=== PATIENT | male | born 1980 | race American Indian/Alaskan Native ===

== ENCOUNTER 2019-08-22 21:48 | Emergency (ER) | payer SELFPAY ==
--- NOTE | 2019-08-23 01:29 | Emergency Department Report ---
<JAHAIRA CUADRA - Last Filed: 08/23/19 04:38> ED Fall HPI - General Chief Complaint: Fall Stated Complaint: RIGHT LEG AND NECK PAIN,ETOH Time Seen by Provider: 08/23/19 00:36 Source: patient, EMS Mode of arrival: Ambulatory Limitations: Altered Mental Status (secondary to intoxication) - History of Present Illness Initial Comments: Difficult to perform full HPI secondary to patient's intoxication, patient is a poor historian Patient is a 39-year-old male who presents emergency room with complaints of a fall that occurred tonight. He states he was "jumping into something and fell in the mud". I asked patient what he was jumping into and he begins to laugh. He states he hit his head. He states he has back pain. Upon questioning patient if he lost consciousness he laughs. No past medical history per patient no known allergies per patient. I asked pt if he drank alcohol tonight and he states yes that he drank four locos, I asked pt how much he had to drink and he stated "alot" - Related Data Home Medications Medication Instructions Recorded Confirmed Last Taken No Known Home Medications [No 08/23/19 08/23/19 Unknown Reported Home Medications] Allergies Allergy/AdvReac Type Severity Reaction Status Date / Time No Known Allergies Allergy Verified 08/23/19 04:29 ED Review of Systems Comment: Unobtainable due to pts medical conditions ED Past Medical Hx - Past Medical History Previous Medical History?: No - Surgical History Past Surgical History?: No - Social History Smoking Status: Current Every Day Smoker Substance Use Type: Alcohol - Medications Home Medications: Home Medications Medication Instructions Recorded Confirmed Last Taken Type No Known Home Medications [No 08/23/19 08/23/19 Unknown History Reported Home Medications] ED Physical Exam - General Limitations: No Limitations General appearance: appears intoxicated - Head Head exam: Present: atraumatic, normocephalic - Eye Eye exam: Present: PERRL, EOMI, conjunctival injection (bilaterally) - ENT ENT exam: Present: mucous membranes dry - Neck Neck exam: Present: normal inspection, full ROM - Respiratory Respiratory exam: Present: normal lung sounds bilaterally. Absent: respiratory distress, wheezes, rales, rhonchi, stridor, chest wall tenderness, accessory muscle use, decreased breath sounds, prolonged expiratory - Cardiovascular Cardiovascular Exam: Present: regular rate, normal rhythm, normal heart sounds. Absent: systolic murmur, diastolic murmur, rubs, gallop - Extremities Exam Extremities exam: Present: other (spontaneously moving all extremities and ambulating without difficulty) - Back Exam Back exam: Present: normal inspection, full ROM, other (upon palpation of the midline spine he states that everywhere hurts but then begins to laugh, there are no step offs, no obvious deformities) - Neurological Exam Neurological exam: Present: alert, normal gait, other (oriented to name and ) - Expanded Neurological Exam Expanded Best Eye Response ([place]): (4) open spontaneously Best Motor Response ([place]): (6) obeys commands Best Verbal Response ([place]): (4) confused conversation [place] Total: 14 - Skin Skin exam: Present: warm, dry, intact ED Medical Decision Making - Lab Data Result diagrams: 08/23/19 01:07 08/23/19 01:07 ED Disposition Clinical Impression: Alcohol intoxication, Fall, Injury of back due to fall Disposition: DC-01 TO HOME OR SELFCARE Condition: Stable Instructions: Alcohol Intoxication (ED), Abuse of Alcohol (ED) Additional Instructions: Please follow-up with a primary care physician in the next few days. Please avoid any further alcohol abuse. Return to the emergency department with any worsening of your symptoms or any acute distress. Referrals: [facility] [Provider Group] - 2-3 Days <RAFAEL MENCHACA - Last Filed: 08/23/19 06:26> ED Medical Decision Making - Lab Data Result diagrams: 08/23/19 01:07 08/23/19 01:07 - Radiology Data Radiology results: report reviewed CT head/brain wo con INDICATION / CLINICAL INFORMATION: Pt intoxicated, post- fall, now with headache, Positive L.O.C.. TECHNIQUE: Axial CT imaging of the brain was obtained without contrast. Coronal and sagittal reformatted imaging obtained and reviewed. All CT scans at this location are performed using CT dose reduction for ALARA by means of automated exposure control. COMPARISON: None available. FINDINGS: No intracranial hemorrhage, mass, or midline shift. No extra-axial fluid collection or suggestion of acute territorial infarction. Ventricular system and basilar cisterns are unremarkable. Visualized paranasal sinuses and mastoid air cells are well aerated and clear. No visible calvarial fracture. IMPRESSION: 1. Negative noncontrasted head CT scan. CT cervical spine wo con INDICATION / CLINICAL INFORMATION: Pt intoxicated, post-fall, now with headache, Positive L.O.C.. TECHNIQUE: Axial CT imaging of the cervical spine was obtained without contrast. Coronal and sagittal reformatted imaging obtained and reviewed. All CT scans at this location are performed using CT dose reduction for ALARA by means of automated exposure control. COMPARISON: None available. FINDINGS: No cervical spine fracture or malalignment is noted. Vertebral body heights and disc spaces are well- preserved. No significant degenerative change. Paravertebral soft tissues are unremarkable. Visualized lung apices are clear. IMPRESSION: 1. No evidence for fracture or malalignment. CT abdomen pelvis w con, CT chest w con INDICATION / CLINICAL INFORMATION: Pt intoxicated, post-fall, now with headache, back pain. Trauma Omnipaque 300 / 100ml's was used for this exam.. TECHNIQUE: Axial CT imaging of chest, abdomen and pelvis was obtained with IV contrast. Coronal and sagittal reformatted imaging obtained and reviewed. All CT scans at this location are performed using CT dose reduction for ALARA by means of automated exposure control. COMPARISON: None available. FINDINGS: CT chest with contrast is unremarkable. No mediastinal mass. Thoracic aorta is normal. No aortic aneurysm or dissection. No pericardial effusion. Both lungs are well aerated and clear. No evidence for pulmonary contusion, pneumonia, pleural effusion, or pneumothorax. There is incidental finding of bilateral axillary adenopathy. No mediastinal or hilar adenopathy. CT abdomen with contrast demonstrates normal appearance of the liver, spleen, pancreas, kidneys, and adrenal glands. Gallbladder is mostly collapsed. No biliary dilatation. No free air or free flu id. CT pelvis with contrast demonst rates normal appearance of the appendix. No pelvic mass, free fluid, or focal inflammatory change. There is prominent bilateral inguinal adenopathy. No evidence for fracture within the chest, abdomen, or pelvis. IMPRESSION: 1. No evidence for traumatic injury within the chest, abdomen, or pelvis. 2. Incidental finding of prominent bilateral axillary adenopathy and bilateral inguinal adenopathy. This is nonspecific, but this pattern can be seen in patients who are HIV positive or otherwise immunosuppressed. This finding can also be seen in lymphoma. Please correlate with any pertinent clinical history. CT abdomen pelvis w con, CT chest w con INDICATION / CLINICAL INFORMATION: Pt intoxicated, post-fall, now with headache, back pain. Trauma Omnipaque 300 / 10 0ml's was used for this exam.. TECHNIQUE: Axial CT imaging of chest, abdomen and pelvis was obtained with IV contrast. Coronal and sagittal reformatted imaging obtained and reviewed. All CT scans at this location are performed using CT dose reduction for ALARA by means of automated exposure control. COMPARISON: None available. FINDINGS: CT chest with contrast is unremarkable. No mediastinal mass. Thoracic aorta is normal. No aortic aneurysm or dissection. No pericardial effusion. Both lungs are well aerated and clear. No evidence for pulmonary contusion, pneumonia, pleural effusion, or pneumothorax. There is incidental finding of bilateral axillary adenopathy. No mediastinal or hilar adenopathy. CT abdomen with contrast demonstrates normal appearance of the liver, spleen, pancreas, kidneys, and adrenal glands. Gallbladder is mostly collapsed. No biliary dilatation. No free air or free flu id. CT pelvis with contrast demonstrates normal appearance of the appendix. No pelvic mass, free fluid, or focal inflammatory change. There is prominent bilateral inguinal adenopathy. No evidence for fracture within the chest, abdomen, or pelvis. IMPRESSION: 1. No evidence for traumatic injury within the chest, abdomen, or pelvis. 2. Incidental finding of prominent bilateral axillary adenopathy and bilateral inguinal adenopathy. This is nonspecific, but this pattern can be seen in patients who are HIV positive or otherwise immunosuppressed. This finding can also be seen in lymphoma. Please correlate with any pertinent clinical history. - Medical Decision Making This patient was initially seen by the midlevel provider. He has admitted to alcohol abuse and intoxication and came in with some complaints of a headache, back pain after a fall. His blood alcohol level is 0.26 at 1:00 AM and therefore it is still most likely close to 0.22 at this time. The patient is adamant about leaving the emergency department. While he is seen ambulating without any instability and does not have any obvious signs of trauma, the patient does appear intoxicated. The patient was instructed to remain in the emergency department until he can be medically cleared and is clinically sober, or if someone can come and take responsibility for him and safely get him home. The patient is refusing to remain in the emergency department at this time. He has been made a 2013 but has eloped from the emergency department. The police will be notified. The patient was brought back in by police. He was brought back to room 16. The patient had a CT scan of the head, cervical spine, chest and abdomen. The patient had x-rays of the thoracic and lumbar spine. There have been no fractures, bleeding, or acute pathology found with any of his imaging. The patient has been receiving some IV fluid via banana bag. This will be signed out to a colleague and the patient will be discharged when he is either sober or someone comes to pick him up and take responsibility for him. <JOS BURROWS - Last Filed: 08/23/19 11:11> ED Review of Systems ROS: Stated complaint: RIGHT LEG AND NECK PAIN,ETOH Other details as noted in HPI ED Course Vital Signs 08/22/19 08/23/19 08/23/19 22:05 03:21 07:47 Temperature 98.0 F 98.0 F 96.8 F L Pulse Rate 93 H 89 82 Respiratory 18 18 20 Rate Blood Pressure 151/96 141/87 159/92 [Right] O2 Sat by Pulse 98 97 96 Oximetry ED Medical Decision Making - Lab Data Result diagrams: 08/23/19 01:07 08/23/19 01:07 - Medical Decision Making I received this pt at sign-out from Dr Menchaca. Pt presented w/ ETOH intoxication. He is currently awake and alert, answers questions appropriately. Appears to be clinically sober. Seen by mental health manager continuous improvement, resources given. 2012 rescinded. Will d/c home at this time. Critical care attestation.: If time is entered above; I have spent that time in minutes in the direct care of this critically ill patient, excluding procedure time. ED Disposition Is pt being admited?: No
[2019-08-23 01:50] LABS: Basophils # (Auto) 0.1 K/mm3 (0.0-0.1); Basophils % (Auto) 1.5 % (0.0-1.8); Eosinophils % (Auto) 0.7 % (0.0-4.3); Hematocrit 39.4 % (35.5-45.6); Hemoglobin 13.8 gm/dl (11.8-15.2); Mean Corpuscular HGB Conc 35 % (32-34); Mean Corpuscular Volume 77 fl (84-94); Monocytes # (Auto) 0.5 K/mm3 (0.0-0.8); Platelet Count 296 K/mm3 (140-440); Red Blood Count 5.13 M/mm3 (3.65-5.03); Red Cell Distribution Width 19.4 % (13.2-15.2)
[2019-08-23 01:59] LABS: INR 0.99 (0.87-1.13)
[2019-08-23 02:00] LABS: Partial Thromboplastin Time 30.6 Sec. (24.2-36.6)
[2019-08-23 02:01] LABS: Alanine Aminotransferase 63 units/L (7-56); Albumin 3.9 g/dL (3.9-5); BUN/Creatinine Ratio 6; Blood Urea Nitrogen 5 mg/dL (9-20); Calcium 8.8 mg/dL (8.4-10.2); Hemolysis Index 2
[2019-08-23] MEDS ORDERED: THIAMINE 100 MG, FOLIC ACID 1 MG, MULTIPLE VITAMIN INJ, ADULT 10 ML in SODIUM CHLORIDE ... IV ONE (04:23)
--- NOTE | 2019-08-23 04:29 | Cat Scan Report ---
CT head/brain wo con INDICATION / CLINICAL INFORMATION: Pt intoxicated, post-fall, now with headache, Positive L.O.C.. TECHNIQUE: Axial CT imaging of the brain was obtained without contrast. Coronal and sagittal reformatted imaging obtained and reviewed. All CT scans at this location are performed using CT dose reduction for ALAR A by means of automated exposure control. COMPARISON: None available. FINDINGS: No intracranial hemorrhage, mass, or midline shift. No extra-axial fluid collection or suggestion of acute territorial infarction. Ventricular system and basilar cisterns are unremarkable. Visualized paranasal sinuses and mastoid air cells are well aerated and clear. No visible calvarial f racture. IMPRESSION: 1. Negative noncontrasted head CT scan. Signer Name: Christine Chu MD Signed: 08/23/2019 4:25 AM Workstation Name: [id number]
--- NOTE | 2019-08-23 04:32 | Cat Scan Report ---
CT cervical spine wo con INDICATION / CLINICAL INFORMATION: Pt intoxicated, post-fall, now with headache, Positive L.O.C.. TECHNIQUE: Axial CT imaging of the cervical spine was obtained without contrast. Coronal and sagittal reformatte d imaging obtained and reviewed. All CT scans at this location are performed using CT dose reduction for ALARA by means of automated exposure control. COMPARISON: None available. FINDINGS: No cervical spine fracture or malalignment is noted. Vertebral body heights and disc spaces are well- preserved. No significant degenerative change. Paravertebral soft tissues are unremarkable. Visualized lung apices are clear. IMPRESSION: 1. No evidence for fracture or malalignment. Signer Name: Christine Chu MD Signed: 08/23/2019 4:28 AM Workstation Name: [email or web address]
--- NOTE | 2019-08-23 04:48 | Cat Scan Report ---
CT abdomen pelvis w con, CT chest w con INDICATION / CLINICAL INFORMATION: Pt intoxicated, post-fall, now with headache, back pain. Trauma Omnipaque 300 / 100ml's was used for this exam.. TECHNIQUE: Axial CT imaging of chest, abdomen and pelvis was obtained with IV contrast. Coronal and sagittal ref ormatted imaging obtained and reviewed. All CT scans at this location are performed using CT dose re duction for ALARA by means of automated exposure control. COMPARISON: None available. FINDINGS: CT chest with contrast is unremarkable. No mediastinal mass. Thoracic aorta is normal. No aortic aneu rysm or dissection. No pericardial effusion. Both lungs are well aerated and clear. No evidence for p ulmonary contusion, pneumonia, pleural effusion, or pneumothorax. There is incidental finding of bilateral axillary adenopathy. No mediastinal or hilar adenopathy. CT abdomen with contrast demonstrates normal appearance of the liver, spleen, pancreas, kidneys, and adrenal glands. Gallbladder is mostly collapsed. No biliary dilatation. No free air or free fluid. CT pelvis with contrast demonstrates normal appearance of the appendix. No pelvic mass, free fluid, o r focal inflammatory change. There is prominent bilateral inguinal adenopathy. No evidence for fracture within the chest, abdomen, or pelvis. IMPRESSION: 1. No evidence for traumatic injury within the chest, abdomen, or pelvis. 2. Incidental finding of prominent bilateral axillary adenopathy and bilateral inguinal adenopathy. T his is nonspecific, but this pattern can be seen in patients who are HIV positive or otherwise immuno suppressed. This finding can also be seen in lymphoma. Please correlate with any pertinent clinical h istory. Signer Name: Christine Chu MD Signed: 08/23/2019 4:44 AM Workstation Name: [id number]
--- NOTE | 2019-08-23 06:19 | XRay Report ---
THORACIC SPINE, 3 VIEWS INDICATION / CLINICAL INFORMATION: ETOH, Fall, Back pain. COMPARISON: None available. FINDINGS: Thoracic spine appears unremarkable. Vertebral body heights are maintained. Alignment is normal. No v isible fracture. IMPRESSION: Negative exam. Signer Name: Christine Chu MD Signed: 08/23/2019 6:14 AM Workstation Name: [id number]
--- NOTE | 2019-08-23 06:20 | XRay Report ---
LUMBAR SPINE, 3 VIEWS INDICATION / CLINICAL INFORMATION: ETOH, fall, back pain. COMPARISON: None available. FINDINGS: Vertebral body heights and disc spaces are normal. Alignment is normal. No fracture or significant de generative change identified. Contrast is present in the urinary tract consistent with excretion of IV contrast given for CT scan e arlier today. IMPRESSION: No significant skeletal abnormality. Signer Name: Christine Chu MD Signed: 08/23/2019 6:16 AM Workstation Name: [id number]
[2019-08-23 07:49] VITALS: BP 159/92
== END 2019-08-23 12:00 | disposition home or self-care (01) ==
LOC: ED 21:48
DX: S39.82XA Other specified injuries of lower back, initial encounter (principal); F10.129 Alcohol abuse with intoxication, unspecified; W17.89XA Other fall from one level to another, initial encounter; Y93.89 Activity, other specified; Y92.89 Other specified places as the place of occurrence of the external cause; Y99.8 Other external cause status
CPT/HCPCS: 36415; 70450; 71260; 72072; 72100; 72125; 74177; 80053; 85025; 85610; 85730; 96365; 96366; 96372; 99285; J3411; J7030; Q9967; 80320; G0480